=== PATIENT | male | born 1990 | race Caucasian/White ===

== ENCOUNTER 2025-02-06 03:24 | Day surgery (SDC) | payer OTHER, SELFPAY ==
[2025-01-22 15:22] VITALS: BMI 26.4
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
--- OUTSIDE RECORDS SUMMARY | 2025-02-06 03:27 | XMS_ITS | Clinical Summary ---
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
[2025-02-06 13:02] VITALS: BP 111/90; PULSE 99; RESP 20; TEMP 36.3; O2SAT 98; BMI 25.4
[2025-02-06] MEDS: LACTATED RINGERS 1,000 ML 150 ML IV CONT (13:05)
--- NOTE | 2025-02-06 13:20 | P.PNAN_ITS ---
Anes - Initial Pre Proc Eval Procedure: Operation Date: 02/06/25 14:15 Proposed Procedures p Colonoscopy - Juice Kwong MD Date/Time: 02/06/25 13:20 Surgeon: Juice Kwong MD Pre Op Diagnosis: Melena Patient Data Age: 34 Gender: M Height: 1.85 m Weight: 87.6 kg Last Vital Signs Temp 36.3 C L 02/06/25 13:02 Pulse 99 02/06/25 13:02 Resp 20 02/06/25 13:02 BP 111/90 02/06/25 13:02 Pulse Ox 98 02/06/25 13:02 O2 Del Method Room Air 02/06/25 13:02 Allergies Allergy/AdvReac Type Severity Reaction Status Date / Time No Known Allergies Allergy Verified 02/06/25 13:00 Home Medications ?Medication ?Instructions ?Recorded ?Confirmed ?Type No Home Medications 01/22/25 01/22/25 H istory Patient hx anesthesia problems: none Family hx anesthesia problems: none Results Review: All pre-operative results and documents have been reviewed as part of the pre- operative evaluation. [facility] Past Medical History Medical History Smokeless tobacco use BMI 28.0-28.9,adult Blood in stool Low back pain radiating to right leg Encounter for completion of form with patient BMI 27.0-27.9,adult Vaping nicotine dependence, tobacco product Hypersomnia Snoring Encounter to establish care Hx of benign neoplasm of spinal meninges Surgical History Surgical History History of brain surgery 2011 Family History Family History Father Myeloma Grandparent Cerebrovascular accident Social History Social History Years smoked: 5 Smoking status: Former smoker Tobacco type: e-cigarettes/vaping Alcohol intake: current Drinks per week: 2 Alcohol use details: beer Substance use: never Living arrangements: with family Additional living arrangements comments: with sp Anes - Eval Final PreProcedure Day of Procedure 02/06/25 13:20 Patient weight: overweight Heart: regular rate and rhythm Lungs: clear to auscultation Airway: Mallampati scale class II Neurological: alert and oriented Last oral intake: >/= 8 hours ASA classification: III Emergent: no Anesthetic plan: proceed Anesthesia type and monitoring: general GIVS and standard monitoring Results Review: All pre-operative results and documents have been reviewed as part of the pre- operative evaluation. Informed Consent: The patient's anesthetic plan and its attendant risks and benefits were d iscussed with the patient/family/POA. Questions were solicited and answers provided to the satisfaction of the patient/family/POA.
--- NOTE | 2025-02-06 14:10 | PM.HPGS ---
History of Present Illness History of Present Illness Consent: Risks, benefits, and alternatives have been discussed and questions answered. Patient agrees to proceed with procedure. Chief complaint: Melena Narrative: Enzo Robbins is a 34 year old male here for first colonoscopy, had blood in stools Review of Systems Review of Systems: All systems reviewed & are unremarkable except as noted in HPI and below PMFSH Past Medical History Medical History Smokeless tobacco use BMI 28.0-28.9,adult Blood in stool Low back pain radiating to right leg Encounter for completion of form with patient BMI 27.0-27.9,adult Vaping nicotine dependence, tobacco product Hypersomnia Snoring Encounter to establish care Hx of benign neoplasm of spinal meninges Surgical History Surgical History History of brain surgery 2012 Family History Family History Father Myeloma Grandparent Cerebrovascular accident Social History Social History Years smoked: 5 Smoking status: Former smoker Tobacco type: e-cigarettes/vaping Alcohol intake: current Drinks per week: 2 Alcohol use details: beer Substance use: never Living arrangements: with family Additional living arrangements comments: with sp Meds Home Medications and Allergies Home Medications ?Medication ?Instructions ?Recorded ?Confirmed ?Type No Home Medications 01/22/25 01/22/25 History Allergies Allergy/AdvReac Type Severity Reaction Status Date / Time No Known Allergies Allergy Verified 02/06/25 13:00 Vital Signs Vital Signs - 24 hr 02/06/25 13:02 Temperature 97.4 F L Pulse Rate 99 Respiratory Rate 20 Blood Pressure 111/90 Pulse Oximetry 98 Oxygen Delivery Room Air Exam Const: General: comfortable and no acute distress HENMT: Face/Nose/Sinus: Normal nares present Eyes: General: appearance normal, both eyes and all related structures Neck: Neck: no JVD Resp: Auscultation: clear to auscultation bilaterally Cardio: Rate: regular rate Rhythm: regular rhythm GI: Inspection: non-distended GI Palp: Yes Soft to palpation Skin: General skin exam: normal color Neuro: Speech: normal speech Extrem: General: normal to inspection Psych: Mental Status: mental status grossly normal Assessment and Plan Assessment and plan (1) Blood in stool: Code(s): K92.1 - Melena Status: Acute Assessment and Plan: colonoscopy
[2025-02-06 14:25] VITALS: BP 90/64; PULSE 70; RESP 20; O2SAT 97
[2025-02-06 14:35] VITALS: BP 102/69; PULSE 66; RESP 19; O2SAT 100
[2025-02-06 14:45] VITALS: BP 111/78; PULSE 64; RESP 19; O2SAT 100
== END 2025-02-06 15:05 | disposition home or self-care (01) ==
PROVIDERS: PCP Nurse Practitioner Family; Visit Provider Internal Medicine Gastroenterology
PROC: 0DJD8ZZ Inspection of Lower Intestinal Tract, Via Natural or Artificial Opening Endoscopic (ICD-10-PCS; CPT 45378; principal; 2025-02-06 14:15)
DX: K64.8 Other hemorrhoids (principal); G47.10 Hypersomnia, unspecified; Z98.890 Other specified postprocedural states; Z87.891 Personal history of nicotine dependence
CPT/HCPCS: 45378; J2003; J2704; J7120